=== PATIENT | female | born 1995 | race Caucasian/White ===

== ENCOUNTER 2016-02-24 17:01 | Emergency (ER) | payer BC, OTHER ==
[2016-02-24 17:22] VITALS: BP 128/81
[2016-02-24] MEDS ORDERED: CEPHALEXIN MONOHYDRATE 250 MG CAPSULE PO ONE (20:05)
--- NOTE | 2016-02-24 20:11 | ERNOTE ---
ENT HPI Date of Service: 02/24/16 Presenting Symptoms: other - ear pain Time Seen by Provider: 02/24/16 19:57 Source: patient Exam Limitations: no limitations - Immun/Allergies/Home Medications Immunizations: IMMUNIZATION HX Immunizations Up to Date No History of Influenza Vaccine No Hx Pneumococcal Vaccination No Allergies/Adverse Reactions: Allergies Allergy/AdvReac Type Severity Reaction Status Date / Time amoxicillin [Amoxicillin] AdvReac Mild RASH Verified 02/24/16 17:22 Home Medications: HOME MEDICATIONS Calcium Carbonate [Tums] 300 mg PO PRN PRN 02/24/16 [Last Taken Unknown] Cephalexin Monohydrate [Keflex] 500 mg PO QID #40 cap 02/24/16 [Last Taken Unknown] Vit#96/Ferrous Fum/FA [ S] 1 tab PO DAILY 02/24/16 [Last Taken Unknown] - History of Present Illness Narrative: Pt. comes in with c/o R ear pain and fullness for two weeks that she has been treating with sweet oil and ear irrigation Review of Systems - Review of Systems Constitutional: Present: no symptoms reported. Absent: recent illness, fever, chills, malaise EYE: Present: no symptoms reported ENT: Present: ear pain, other - ear fullness and decreased hearing Respiratory: Present: no symptoms reported. Absent: shortness of breath, cough , wheezing Cardiology: Present: no symptoms reported. Absent: chest pain, palpitations, edema Gastrointestinal/Abdominal: Present: no symptoms reported. Absent: nausea, vomiting, diarrhea Musculoskeletal: Present: no symptoms reported. Absent: back pain, joint pain Skin: Present: no symptoms reported. Absent: rash Neurological: Present: no symptoms reported. Absent: headache, dizziness/light- headedness All Other Systems: All systems neg except as marked - Patient's Past Medical History Patient History - Medical: Anxiety Patient History - Cancer: No Hx of Cancer Patient History - Surgical Procedures: T & A - Family History Mother Family History - Medical: Anxiety, Bipolar, Rheumatoid Arthritis Father Family History - Medical: Rheumatoid Arthritis - Social History Living Situations: home Smoking Status: Never smoker Alcohol Use: none Drug Use: none Physical Exam - Physical Exam General Appearance: Present: wd/wn, alert, no apparent distress Eye Exam: Normal inspection: bilateral, PERRL: bilateral, EOMI: bilateral Ears, Nose, Throat: Present: abnormal TM (R) - bulging TM. Absent: abnormal TM (L), normal pharynx, pharyngeal erythema, pharyngeal swelling Neck: Present: lymphadenopathy (R) - tender R post auricular lymph node. Absent : lymphadenopathy (L) Respiratory: Present: no respiratory distress, normal breath sounds, no accessory muscle use, chest nontender, lungs clear Cardiovascular/Chest: Present: regular rate, rhythm, no murmur, normal peripheral pulses Back Exam: Present: normal inspection, normal range of motion, no CVA tenderness , no vertebral tenderness Extremity Exam: Present: normal inspection, non-tender, no edema, normal range of motion Neurological Exam: Present: alert, oriented, normal mood/affect, no motor/ sensory deficits, [employer] II-XII nml as tested, normal cerebellar test Skin Exam: Present: normal color, warm/dry. Absent: pallor, skin rash ED Progress - Vital Signs Patient's Vital Signs:: I have reviewed the patient's vital signs. Vital Signs: Vital Signs 02/24/16 17:12 Temperature 35.6 C L Pulse Rate 87 Respiratory 16 Rate Blood Pressure 128/81 O2 Sat by Pulse 100 Oximetry - Progress/Reassessment Chief Complaint: Earache Departure Clinical Impression: Otitis media Qualifiers: Otitis media type: suppurative Laterality: right Chronicity: acute Recurrence: not specified as recurrent Spontaneous tympanic membrane rupture: without spontaneous rupture Qualified Code(s): H66.001 - Acute suppurative otitis media without spontaneous rupture of ear drum, right ear - Departure Disposition: Home self-care Condition: Good Instructions: Otitis Media With Effusion Additional Instructions: Please follow up with primary provider in 2-3 days Referrals: Magan Sandoval MD [Primary Care Provider] - Prescriptions: Cephalexin Monohydrate [Keflex] 500 mg PO QID #40 cap
[2016-02-24] MEDS ORDERED: CEPHALEXIN MONOHYDRATE 250 MG CAPSULE ONE (20:14)
== END 2016-02-24 20:21 | disposition home or self-care (01) ==
LOC: ER 17:01
DX: H66.001 Acute suppurative otitis media without spontaneous rupture of ear drum, right ear (principal)

== ENCOUNTER 2016-05-26 02:55 | Inpatient (IN) | payer BC, OTHER ==
[2016-05-26] MEDS ORDERED: BUTORPHANOL TARTRATE 2 MG/ML VIAL IV PRN (06:41)
[2016-05-26] MEDS ORDERED: LIDOCAINE HCL 50 ML VIAL PERI PRN (07:48)
[2016-05-26] MEDS ORDERED: RINGERS SOLUTION,LACTATED 1,000 ML IV PRN (07:48)
[2016-05-26] MEDS ORDERED: DEXTROSE 5%-LACTATED RINGERS 1,000 ML IV PRN (07:48)
[2016-05-26] MEDS ORDERED: OXYTOCIN/DEXTROSE 5%-WATER 30 UNITS/500 ML BAG IV ONE ×2 (07:48→10:16)
[2016-05-26] MEDS ORDERED: RINGERS SOLUTION,LACTATED 1,000 ML IV ONE (07:48)
--- NOTE | 2016-05-26 09:00 | PN ---
Progess Note - Interim Narrative: 05/26/16 08:58 Subjective-patient is with pressure and uncomfortable Objective- SVE- 6/90/0, amniotomy performed with minimal fluid, bloody show FHTs-120s, moderate variability, positive accelerations, no decelerations [place]- 2-3 minutes Assessment and plan- Labor-spontaneous GBS status-negative Continue current plan of care.
--- NOTE | 2016-05-26 09:25 | OR ---
Anesthesia Pre Procedure Eval Date of Service: 05/26/16 Pre Procedure Evaluation: Last Vital Signs Temp 35.6 C L 03/05/16 12:06 Pulse Resp BP 128/81 03/05/16 12:06 Pulse Ox Anesthesia Pre Procedure Evaluation Heart Rate:73 Blood Pressure:161/72 Termperature:36.7C Respiratory Rate:20 SaO2:100 DATE: 05/26/2016 TIME: 11 15 INDICATIONS: Active labor labor pain PAST MEDICAL HISTORY: With upper patient in active labor currently at 9 cm dilatation requesting labor analgesia EXAM: Heart regular; lungs clear ASSESSMENT OF MEDICAL STATUS: Appropriate candidate for labor analgesia PLANNED PROCEDURE: Interthecal for labor analgesia Home Medications: HOME MEDICATIONS Calcium Carbonate [Tums] 300 mg PO PRN PRN 02/24/16 [Last Taken 05/26/16 01:15] Vit#96/Ferrous Fum/FA [ S] 1 tab PO DAILY 02/24/16 [Last Taken 05/25/16 09:00]
[2016-05-26] MEDS ORDERED: fentaNYL CITRATE/PF 50 MCG/ML AMPUL IT SCH (09:30)
--- NOTE | 2016-05-26 09:33 | OR ---
Anesthesia Pre Procedure Eval Date of Service: 05/26/16 Pre Procedure Evaluation: Last Vital Signs Temp 35.6 C L 03/05/16 12:06 Pulse Resp BP 128/81 03/05/16 12:06 Pulse Ox Anesthesia Pre Procedure Evaluation DATE: 05/26/2016 TIME: 11 20 ASSESSMENT OF MEDICAL STATUS: On proceeding to prepare with interthecal patient felt she was ready to deliver. On vaginal exam by the RN was declared to be complete dilatation and ready to deliver. PLANNED PROCEDURE: Cancel interthecal. Home Medications: HOME MEDICATIONS Calcium Carbonate [Tums] 300 mg PO PRN PRN 02/24/16 [Last Taken 05/26/16 01:15] Vit#96/Ferrous Fum/FA [ S] 1 tab PO DAILY 02/24/16 [Last Taken 05/25/16 09:00]
[2016-05-26] MEDS ORDERED: BISACODYL 10 MG SUPP.RECT RC PRN (10:16)
[2016-05-26] MEDS ORDERED: GLYCERIN/WITCH HAZEL LEAF 40 APPL BOX TP PRN (10:16)
[2016-05-26] MEDS ORDERED: oxyCODONE HCL/ACETAMINOPHEN 1 TAB TABLET PO PRN (10:16)
[2016-05-26] MEDS ORDERED: SENNOSIDES 8.6 MG TABLET PO PRN (10:16)
[2016-05-26] MEDS ORDERED: BENZOCAINE/MENTHOL 81 SPRAY CAN TP PRN (10:16)
[2016-05-26] MEDS ORDERED: HYDROCORTISONE 30 APPL TUBE TP PRN (10:16)
--- NOTE | 2016-05-26 10:26 | OR ---
Operative Report - Dictated Report Narrative: Spontaneous Vaginal Delivery Viable male with APGARS of 9 at 1 min and 9 at 5 min. He delivered at 945. Presentation was KIMBERLY. No nuchal cord was noted. The left anterior shoulder delivered without difficulty followed by the posterior shoulder and the remainder of the baby. Spontaneous cry was noted. The cord was clampped and cut after 60 seconds. Skin to skin was then performed. Weight: 8 pounds 5.3 ounces, 3779 g Placenta was delivered spontaneously and intact. Second-degree vaginal laceration repaired with 2-0 Vicryl. Estimated blood loss: 200 ml Mother and baby tolerated delivery well. History for Definition: * The number of deliveries resulting in a live the patient experienced prior to current hospitalization * The previous delivery of live twins or any live multiple gestation is considered one live event. *If primagravida or nulliparous is documented select zero for the number of previous live births. Live Events: 0
[2016-05-26] MEDS: oxyCODONE HCL/ACETAMINOPHEN 1 TAB TABLET PO PRN (10:30)
[2016-05-26] MEDS: IBUPROFEN 800 MG TABLET PO PRN (18:43)
[2016-05-27] MEDS: oxyCODONE HCL/ACETAMINOPHEN 1 TAB TABLET PO PRN ×2 (04:46→14:28)
[2016-05-27] MEDS: DOCUSATE SODIUM 100 MG CAPSULE PO SCH ×3 (04:46→20:46)
--- NOTE | 2016-05-27 09:43 | PN ---
Progess Note - Interim Narrative: 05/27/16 09:43 progress note Subjective: The patient is doing well. She is ambulating, voiding, tolerating by mouth. She has minimal pain and moderate lochia. Objective: General: No acute distress Abdomen: Soft, nontender, fundus is firm just below the umbilicus Extremities: minimal edema, nontender to palpation Assessment and plan: day 1 Feeding: Breast Pain: Controlled with by mouth medication Routine care.
[2016-05-28] MEDS: IBUPROFEN 800 MG TABLET PO PRN (07:44)
--- NOTE | 2016-05-28 09:09 | PN ---
Progess Note - Interim Narrative: 05/28/16 09:08 progress note Subjective: The patient is doing well. She is ambulating, voiding, tolerating by mouth. She has minimal pain and moderate lochia. Objective: General: No acute distress Abdomen: Soft, nontender, fundus is firm just below the umbilicus Extremities: minimal edema, nontender to palpation Assessment and plan: day 2 Feeding: Breast Pain: Controlled with by mouth medication Routine care.
[2016-05-28 10:27] VITALS: BP 112/70
[2016-05-28] MEDS: DOCUSATE SODIUM 100 MG CAPSULE PO SCH (16:23)
== END 2016-05-28 16:15 | disposition home or self-care (01) | DRG 775 ==
LOC: OBCLINIC 02:55 → OB 07:45 → MS 14:26
PROVIDERS: ADMIT Obstetrics & Gynecology Gynecologic Oncology; ATTEND Obstetrics & Gynecology Gynecologic Oncology
PROC: 10E0XZZ Delivery of Products of Conception, External Approach (ICD-10-PCS; principal; 2016-05-26)
PROC: 0KQM0ZZ Repair Perineum Muscle, Open Approach (ICD-10-PCS; 2016-05-26)
PROC: 10907ZC Drainage of Amniotic Fluid, Therapeutic from Products of Conception, Via Natural or Artificial Opening (ICD-10-PCS; 2016-05-26)
PROC: 4A1HXCZ Monitoring of Products of Conception, Cardiac Rate, External Approach (ICD-10-PCS; 2016-05-26)
DX: O70.1 Second degree perineal laceration during delivery (principal); O10.93 Unspecified pre-existing hypertension complicating the puerperium; F41.1 Generalized anxiety disorder; Z3A.39 39 weeks gestation of pregnancy; Z37.0 Single live birth

== ENCOUNTER 2018-04-24 04:26 | Inpatient (IN) ==
[2018-04-24] MEDS ORDERED: OXYTOCIN/DEXTROSE 5%-WATER 30 UNITS/500 ML BAG IV ONE ×2 (06:28→12:36)
[2018-04-24] MEDS ORDERED: RINGER'S SOLUTION,LACTATED 1,000 ML IV ONE (06:28)
[2018-04-24] MEDS ORDERED: LIDOCAINE HCL 50 ML VIAL PERI PRN (06:28)
[2018-04-24] MEDS ORDERED: NALOXONE HCL 1 MG/1 ML SYRG IV PRN (06:40)
[2018-04-24] MEDS ORDERED: ONDANSETRON HCL/PF 2 MG/ML VIAL IV PRN (06:40)
[2018-04-24] MEDS ORDERED: BUPIVACAINE HCL/0.9 % NACL/PF 250 ML EP PRN (06:40)
[2018-04-24] MEDS ORDERED: fentaNYL CITRATE/PF 50 MCG/ML AMPUL IT SCH (06:45)
--- NOTE | 2018-04-24 07:13 | ANES ---
Anesthesia Pre Procedure Eval Vitals/Labs: Last Vital Signs Temp 36.3 C 04/24/18 04:49 Pulse 76 04/24/18 04:49 Resp 16 04/24/18 04:49 BP 124/77 04/24/18 04:49 Pulse Ox 98 04/24/18 04:49 HOME MEDICATIONS Vits96/Iron Fum/Folic [ S] 1 tab PO DAILY 02/24/16 [Last Taken 04/23/18] ferrous sulfate 325 mg (65 mg iron) tablet 325 mg PO DAILY #30 tab 09/28/17 [Last Taken 04/23/18] aspirin 81 mg chewable tablet 81 mg PO DAILY 10/27/17 [Last Taken 04/23/18] calcium carbonate 200 mg calcium (500 mg) chewable tablet 200 mg PO TID PRN tab 02/28/18 [Last Taken 04/23/18] Allergies/Adverse Reactions: Allergies Allergy/AdvReac Type Severity Reaction Status Date / Time insect venom Allergy large Verified 04/18/18 16:03 swelling w/ Mosquito bites amoxicillin [Amoxicillin] AdvReac Mild RASH Verified 04/18/18 16:03 - Planned Procedure Medication List Reviewed:: Yes Allergies Verified: Yes Medical History (Last Reviewed 04/24/18 @ 07:12 by Filiberto Carrington CRNA) Depression Onset Date: Unknown mild. No medications. Generalized anxiety disorder Onset Date: 06/29/12 Has not taken meds for several years. Enuresis Onset Date: Unknown Gestational hypertension Onset Date: 06/01/17 Irregular menses Onset Date: Unknown Knee pain Onset Date: 07/09/09 Moderate sprain of left knee MCL Left knee pain Onset Date: 08/14/14 Otitis media Onset Date: Unknown Onset Date: 10/29/15 Spontaneous Onset Date: 06/24/17 Surgical History (Last Reviewed 04/24/18 @ 07:12 by Filiberto Carrington CRNA) H/O excision of ganglion cyst Onset Date: 03/12/15 Dr. Goldberg. Rt wrist. History of placement of ear tubes Onset Date: Unknown History of tonsillectomy and adenoidectomy Onset Date: Unknown Hx of arthroscopic knee surgery Onset Date: 08/28/[address] Goldberg. Family History (Last Reviewed 04/24/18 @ 07:12 by Filiberto Carrington CRNA) Mother Hypertension Crohn's disease Pre-eclampsia PCOS (polycystic ovarian syndrome) Chronic mental illness Back problem Aunt Breast cancer Maternal great aunt Grandfather Hypertension maternal Father Arthritis - Family Anesthesia History Family History:: no untoward family reactions to anesthesia, no familial bleeding tendencies, no family history of clotting disorders, no family history of premature - Airway/Neck/Teeth Within Normal Limits:: Yes Teeth Condition: intact Neck Exam: full range of motion Mallampatti Score: 2 Thyromental (T-M) distance: > 6 cm Mandibulo Hyoid distance: > 3 cm - Respiratory Respiratory Physical: lungs clear Sleep Apnea currently treated: No Sleep Apnea by current assessment: No - Cardiovascular Tolerate Activity: Fair Heart Sounds: S1 & S2, Regular - Anesthesia Assessment and Plan ASA Class: PS, II, E Anesthesia Type Plan: Epidural - CSE for labor analgesia
[2018-04-24] MEDS ORDERED: LIDOCAINE HCL/EPINEPHRINE 20 ML VIAL ONE (07:22)
[2018-04-24 07:24] LABS: Cocaine Ur Negative (NEGATIVE); Urine Barbiturate Negative (NEGATIVE); Urine Benzodiazepines Negative (NEGATIVE); Urine Opiates Negative (NEGATIVE); Urine PCP Negative (NEGATIVE); Urine THC Negative (NEGATIVE)
--- NOTE | 2018-04-24 07:33 | ANES ---
Post Anesthesia Discharge - Transfer of Care Transfer of Care handoff given to nurse: Yes - Discharge from PACU Discharge from PACU when meets criteria: Yes - Comfortable post epidural
--- NOTE | 2018-04-24 07:36 | ANES ---
Anesthesia Procedure Note Procedure Note: ANESTHESIA PROCEDURE NOTE Date of Procedure: 04/24/2018 Time of procedure: 08 30. Performed by: Filiberto Carrington CRNA, MSN Chief Fundraising Officer: Liyah Meraz RN. Preprocedure diagnosis: Active labor, labor pain. Post procedure diagnosis: Same. Procedure:Epidural for labor analgesia L3 4. Indications: Labor pain. Findings: See below. Details of the procedure: The patient was placed on the side of the bed in sitting positionand prepped with DuraPrep then draped in a sterile fashion. Lidocaine 1% was infiltrated to the skin and subcutaneous tissues at the level of the L3 4 interspace. An 18-gauge Touhy needle was used to approach the epidural space with loss of resistance technique. Since Ms. Holloway is not in acute distress, she opted to bypass the initial narcotic analgesia and start directly on the epidural pump. As such, The epidural catheter was then threaded approximately 4 cm in the epidural needle was removed. The catheter was taped in place and after careful aspiration 3 mL of 1.5% lidocaine with 1- 200,000 epinephrine was injected without change in maternal heart rate or sen sorium. The epidural pump was then started. EBL: Minimal. Fluids: N/A. Specimen: N/A. Post procedure condition: The patient tolerated the procedure well with good relief. No complications were noted. Thank you for this consultation. Filiberto Carrington CRNA, MSN
--- NOTE | 2018-04-24 08:21 | ANES ---
Post Anesthesia Assessment - Vital Signs Vitals: Last Vital Signs Temp 36.3 C 04/24/18 04:49 Pulse 76 04/24/18 04:49 Resp 16 04/24/18 04:49 BP 124/77 04/24/18 04:49 Pulse Ox 98 04/24/18 04:49 Airway Patency: Normal - Mental Status Level Of Consciousness: Awake, Alert, Appropriate - Pain Level Pain Score: 0 - N/V Assessment Nausea/Vomiting Presence: None Dehydration:: No
--- NOTE | 2018-04-24 09:16 | HP ---
Chief Complaint - Chief Complaint Date of Service: 04/24/18 Time of Service: 09:15 Chief Complaint: contractions History of Present Illness: 23 yo at 39 3/7 weeks presents with complaint of increasing frequency and intensity of contractions. This complicated by breech - converted to cephalic, h/o GHTN. Rh positive Rubella immune GBS negative Medical History (Last Reviewed 04/24/18 @ 15:14 by Bartolo Gandara DO) Depression Onset Date: Unknown mild. No medications. Generalized anxiety disorder Onset Date: 06/29/12 Has not taken meds for several years. Enuresis Onset Date: Unknown Gestational hypertension Onset Date: 06/01/17 Irregular menses Onset Date: Unknown Knee pain Onset Date: 07/09/09 Moderate sprain of left knee MCL Left knee pain Onset Date: 08/14/14 Otitis media Onset Date: Unknown Onset Date: 10/29/15 Spontaneous Onset Date: 06/24/17 Surgical History: Surgical History (Last Reviewed 04/24/18 @ 15:14 by Bartolo Gandara DO) H/O excision of ganglion cyst Onset Date: 03/12/15 Dr. Goldberg. Rt wrist. History of placement of ear tubes Onset Date: Unknown History of tonsillectomy and adenoidectomy Onset Date: Unknown Hx of arthroscopic knee surgery Onset Date: 08/28/[address] Goldberg. Family History: Family History (Last Reviewed 04/24/18 @ 15:14 by Bartolo Gandara DO) Mother Hypertension Crohn's disease Pre-eclampsia PCOS (polycystic ovarian syndrome) Chronic mental illness Back problem Aunt Breast cancer Maternal great aunt Grandfather Hypertension maternal Father Arthritis Social History: Preferred Language Hebrew Smoking Status Abuse History No History of abuse Psych History Hx of Anxiety,Hx of Depression,Hx of Bipolar Disorder (Last Updated 04/13/18 @ 14:20 by ZEE Huddleston) No Social History Section defined Review Of Systems (GEN) - Review of Systems Generalized/Overall Review: Present: No Symptoms Reported EENTM: Present: No Symptoms Reported Respiratory: Present: No Symptoms Reported Cardiac: Present: No Symptoms Reported Abdominal: Present: Other - contractions Genitourinary: Present: No Symptoms Reported Musculoskeletal: Present: Back Pain Neurological: Present: No Symptoms Reported Skin: Present: No Symptoms Reported Endocrine: Present: No Symptoms Reported Immunizations: IMMUNIZATION HX Immunizations Up to Date Yes History of Influenza Vaccine No Hx Pneumococcal Vaccination No Allergies/Adverse Reactions: Allergies Allergy/AdvReac Type Severity Reaction Status Date / Time insect venom Allergy large Verified 04/18/18 16:03 swelling w/ Mosquito bites amoxicillin [Amoxicillin] AdvReac Mild RASH Verified 04/18/18 16:03 Home Medications: HOME MEDICATIONS Vits96/Iron Fum/Folic [ S] 1 tab PO DAILY 02/24/16 [Last Taken 04/23/18] ferrous sulfate 325 mg (65 mg iron) tablet 325 mg PO DAILY #30 tab 09/28/17 [Last Taken 04/23/18] aspirin 81 mg chewable tablet 81 mg PO DAILY 10/27/17 [Last Taken 04/23/18] calcium carbonate 200 mg calcium (500 mg) chewable tablet 200 mg PO TID PRN tab 02/28/18 [Last Taken 04/23/18] Exam - Exam Vital Signs: Vital Signs - Last Taken Temp 36.3 C 04/24/18 04:49 Pulse 76 04/24/18 04:49 Resp 16 04/24/18 04:49 BP 124/77 04/24/18 04:49 Pulse Ox 98 04/24/18 04:49 Constitutional: Present: Alert, Oriented x3, Cooperative ENT Exam: Present: hearing grossly normal Respiratory: Present: lungs clear, no respiratory distress Cardiovascular/Chest: Present: regular rate, rhythm, no edema Abdomen: Present: soft, nontender, no rebound tenderness, other - gravid /Rectal: Present: Other - 3-4/80/-2 Extremity: Present: no pedal edema, no calf tenderness Skin Exam: Present: normal color, warm/dry, no cyanosis Lymphatic: Present: no adenopathy Neurologic: Present: oriented x 3 Appearance: Present: appropriate appearance, appropriate insight Eye contact: Present: cooperative, good eye contact Thoughts: Present: normal thought pattern, no apparent hallucination Diagnostic Studies: Laboratory Results Urine Opiates Screen Negative (NEGATIVE) 04/24/18 04:18 Barbiturate Screen Negative (NEGATIVE) 04/24/18 04:18 Ur Phencyclidine Scrn Negative (NEGATIVE) 04/24/18 04:18 Urine Amphetamine Negative (NEGATIVE) 04/24/18 04:18 U Benzodiazepines Scrn Negative (NEGATIVE) 04/24/18 04:18 Urine Cocaine Screen Negative (NEGATIVE) 04/24/18 04:18 Urine Marijuana (THC) Negative (NEGATIVE) 04/24/18 04:18 Assessment/Plan - Assessment/Plan (1) Labor established Assessment: Admit for routine management of labor. Epidural PRN. Problem: Acute
--- NOTE | 2018-04-24 09:18 | PN ---
Progess Note - Interim Date: 04/24/18 Time: 09:16 Narrative: 04/24/18 09:17 Patient comfortable with epidural Vital signs stable. Pitocin at 2 mu/min. FHT: reassuring Contractions q 2-3 min Cervix: 67/80/-3, AROM-clear Impression: Intrauterine at 39-3/7 weeks in labor Plan: Continue present plan
[2018-04-24] MEDS ORDERED: oxyCODONE HCL/ACETAMINOPHEN 1 TAB TABLET PO PRN (12:36)
[2018-04-24] MEDS ORDERED: BENZOCAINE/MENTHOL 81 SPRAY CAN TP PRN (12:36)
[2018-04-24] MEDS ORDERED: GLYCERIN/WITCH HAZEL LEAF 40 APPL BOX TP PRN (12:36)
[2018-04-24] MEDS ORDERED: HYDROCORTISONE 30 APPL TUBE TP PRN (12:36)
[2018-04-24] MEDS ORDERED: SENNOSIDES 8.6 MG TABLET PO PRN (12:36)
[2018-04-24] MEDS ORDERED: BISACODYL 10 MG SUPP.RECT RC PRN (12:36)
[2018-04-24] MEDS ORDERED: CALCIUM CARBONATE 500 MG TAB.CHEW PO PRN (12:37)
--- NOTE | 2018-04-24 12:39 | OR ---
Operative Report - Dictated Report Narrative: Spontaneous vaginal delivery of vigorously crying viable male at 12:15 on 04/24/2018 with Apgars 8 and 9, weighing 3564 g in REINA position with tight nuchal cord 1 Cord clamping delayed approximately 1 minute Placenta delivered complete, intact, with three vessel cord Estimated blood loss: Approximately 100 mL Anesthesia: epidural Lacerations: Second-degree vaginal laceration repaired with 3-0 Vicryl Rapide History for MU Definition: * The number of deliveries resulting in a live the patient experienced prior to current hospitalization * The previous delivery of live twins or any live multiple gestation is c onsidered one live event. *If primagravida or nulliparous is documented select zero for the number of previous live births. Live Events: 1
[2018-04-24] MEDS: DOCUSATE SODIUM 100 MG CAPSULE PO SCH (20:51)
[2018-04-25] MEDS: IBUPROFEN 800 MG TABLET PO PRN ×3 (00:51→16:35)
--- NOTE | 2018-04-25 09:27 | PN ---
Subjective - Date and Time Seen Date: 04/25/18 Time: 09:26 Objective - Vitals Vitals: Last Vital Signs Temp 36.7 C 04/25/18 07:00 Pulse 76 04/25/18 07:00 Resp 18 04/25/18 07:00 BP 110/71 04/25/18 07:00 Pulse Ox 97 04/25/18 07:00 Patient denies complaints. Lochia wnl Abdomen - soft, nontender Uterus - firm, at umbilicus - 1 No calf tenderness Impression: day #1 - s/p spontaneous vaginal delivery. Plan: Continue routine care Assessment/Plan - Problems/Diagnosis (1) Labor established Problem: Acute
[2018-04-25] MEDS: FERROUS SULFATE 325 MG TABLET PO SCH (10:01)
[2018-04-25] MEDS: DOCUSATE SODIUM 100 MG CAPSULE PO SCH ×2 (10:01→20:27)
[2018-04-25] MEDS: PRENATAL VITS96/IRON FUM/FOLIC 1 TAB TABLET PO SCH (10:01)
[2018-04-25] MEDS: oxyCODONE HCL/ACETAMINOPHEN 1 TAB TABLET PO PRN ×2 (14:09→20:27)
[2018-04-26] MEDS: IBUPROFEN 800 MG TABLET PO PRN ×2 (02:13→10:22)
[2018-04-26] MEDS: oxyCODONE HCL/ACETAMINOPHEN 1 TAB TABLET PO PRN ×2 (05:56→14:07)
--- NOTE | 2018-04-26 08:57 | PN ---
Subjective - Date and Time Seen Date: 04/26/18 Time: 08:57 Objective - Vitals Vitals: Last Vital Signs Temp 36.7 C 04/26/18 07:00 Pulse 76 04/26/18 07:00 Resp 16 04/26/18 07:00 BP 131/76 04/26/18 07:00 Pulse Ox 95 04/26/18 07:00 Patient denies complaints. Breast-feeding well Lochia wnl Abdomen - soft, nontender Uterus - firm, at umbilicus - 2 No calf tenderness Impression: day #2 - s/p spontaneous vaginal delivery. Plan: Routine discharge instructions Assessment/Plan - Problems/Diagnosis (1) Labor established Problem: Acute
[2018-04-26] MEDS: PRENATAL VITS96/IRON FUM/FOLIC 1 TAB TABLET PO SCH (08:59)
[2018-04-26] MEDS: DOCUSATE SODIUM 100 MG CAPSULE PO SCH (09:00)
[2018-04-26] MEDS: FERROUS SULFATE 325 MG TABLET PO SCH (09:00)
[2018-04-26 10:05] VITALS: BP 135/77
== END 2018-04-26 17:30 | disposition home or self-care (01) | DRG 807 ==
LOC: OBCLINIC 04:26 → OB 06:28
PROVIDERS: ADMIT Obstetrics & Gynecology; ATTEND Obstetrics & Gynecology
CPT/HCPCS: 59025; 80307